=== PATIENT | male | born 1970 | race Caucasian/White ===

== ENCOUNTER 2017-09-07 18:41 | Emergency (ER) | payer OTHER ==
[2017-09-07] MEDS ORDERED: HALOPERIDOL LACTATE 5 MG/ML AMP IV ONE ×2 (20:00→22:00)
[2017-09-07] MEDS ORDERED: LORazepam 2 MG/ML VIAL IV PUSH ONE ×2 (20:00→22:00)
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
[2017-09-07] MEDS ORDERED: SODIUM CHLOR 0.9% 1000 ML INJ 1,000 ML IV ONE (20:15)
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
[2017-09-07 20:37] VITALS: BP 130/72; PULSE 91; RESP 18
[2017-09-07 20:39] VITALS: O2SAT 98
[2017-09-07 20:45] LABS: AUTOMATED NEUTROPHIL # 6.3 TH/MM3 (1.8-7.7); BASOPHIL % 0.1 % (0.0-2.0); EOSINOPHIL % 0.1 % (0.0-4.0); HEMATOCRIT 39.4 % (39.0-51.0); HEMO FLAGS DIFF FINAL; LYMPH % 14.2 % (9.0-44.0); LYMPHOCYTE # 1.3 TH/MM3 (1.0-4.8); MEAN CELL VOLUME 113.4 FL (80.0-100.0); MEAN CORPUSCULAR HEMOGLOBIN 38.7 PG (27.0-34.0); MEAN CORPUSCULAR HGB CONC 34.1 % (32.0-36.0); MONO % 15.7 % (0.0-8.0); NEUT % 69.9 % (16.0-70.0); PLATELET COUNT 139 TH/MM3 (150-450); RED BLOOD COUNT 3.47 MIL/MM3 (4.50-5.90)
[2017-09-07 20:51] LABS: ALT (GPT) 57 U/L (12-78)
[2017-09-07 20:54] LABS: ALKALINE PHOSPHATASE 48 U/L (45-117); TOTAL BILIRUBIN ADULT 0.5 MG/DL (0.2-1.0)
[2017-09-07 21:02] VITALS: BP 119/67
[2017-09-07 21:14] LABS: ANION GAP 8 MEQ/L (5-15); AST (GOT) 54 U/L (15-37); BICARBONATE 23.6 MEQ/L (21.0-32.0); BLOOD UREA NITROGEN 8 MG/DL (7-18); CHLORIDE 110 MEQ/L (98-107); GLOMERULAR FILTRATION RATE 96 ML/MIN (>89); POTASSIUM 3.8 MEQ/L (3.5-5.1); SODIUM (NA) 142 MEQ/L (136-145)
[2017-09-07 21:15] LABS: ALCOHOL LESS THAN 3 MG/DL (0-5)
[2017-09-07 21:33] LABS: BACTERIA, URINE RARE /hpf; BLOOD, URINE NEG (NEG); COMMENT (UR) CULT NOT INDICATED; CULTURE IF INDICATED CULT NOT INDICATED; GLUCOSE,URINE NEG (NEG); HYALINE CAST, URINE 20 /lpf (RARE); KETONE, URINE NEG (NEG); MUCUS URINE MANY /lpf (OCC); NITRITE,URINE NEG (NEG); URINE COLOR YELLOW (YELLW/STRAW)
--- NOTE | 2017-09-08 07:34 | EKG ---
Date Performed: 09/07/2017 Time Performed: 22:31:58 PTAGE: 46 years EKG: George baseline artifact Sinus rhythm NORMAL ECG I would repeat EKG NO PREVIOUS TRACING DOCTOR: Renny James Interpretating Date/Time 09/08/2017 07:33:29
== END 2017-09-08 00:48 ==
LOC: NEPD 18:41
DX: G40.909 Epilepsy, unspecified, not intractable, without status epilepticus (principal); F17.200 Nicotine dependence, unspecified, uncomplicated; R41.0 Disorientation, unspecified; S09.8XXA Other specified injuries of head, initial encounter; X58.XXXA Exposure to other specified factors, initial encounter
CPT/HCPCS: 70450; 80053; 80307; 81001; 85025; 93005; 96361; 96374; 96375; 96376; 99285; J1630; J2060; J7030